=== PATIENT | male | born 1945 | race Caucasian/White ===

== ENCOUNTER 2021-10-27 12:19 | Emergency (ER) | payer OTHER ==
[~2021-10-27 12:19] MED LIST: CIPRO500 MG PO
[2021-10-27 12:50] LABS: HEMOGLOBIN 12.9 gm/dl (14.0-17.5); RED BLOOD COUNT 4.32 M/UL (4.20-5.50); WHITE BLOOD COUNT 6.8 K/UL (4.5-11.0)
[2021-10-27 13:14] LABS: BUN/CREATININE RATIO 21 (0-10)
[2021-10-27] MEDS ORDERED: COLACE100 MG PO (18:54)
[2021-10-27] MEDS ORDERED: FLORASTOR250 MG PO (18:54)
[2021-10-27] MEDS ORDERED: BENTYL 20MG TAB20 MG PO (18:54)
[2021-10-27] MEDS ORDERED: ULTRAM50 MG PO (18:54)
== END 2021-10-27 19:05 | disposition home or self-care (01) ==
LOC: ER1 12:19
PROVIDERS: Physician Assistant
DX: K59.00 Constipation, unspecified (principal); R45.851 Suicidal ideations; F17.210 Nicotine dependence, cigarettes, uncomplicated
CPT/HCPCS: 80053; 81001; 85025; 99284; Q9967

== ENCOUNTER 2022-01-13 20:32 | Emergency (ER) | payer MEDICARE ==
[~2022-01-13 20:32] MED LIST changes: +BENTYL 20MG TAB20 MG PO; +COLACE100 MG PO; +FLORASTOR250 MG PO; +ULTRAM50 MG PO
[2022-01-13 21:39] LABS: HEMOGLOBIN 13.8 gm/dl (14.0-17.5); RED BLOOD COUNT 4.54 M/UL (4.20-5.50); WHITE BLOOD COUNT 6.6 K/UL (4.5-11.0)
[2022-01-13 22:02] LABS: BUN/CREATININE RATIO 14 (0-10)
== END 2022-01-13 23:12 | disposition home or self-care (01) ==
LOC: ER1 20:32
PROVIDERS: Physician Assistant
DX: K59.00 Constipation, unspecified (principal); J44.9 Chronic obstructive pulmonary disease, unspecified; F17.210 Nicotine dependence, cigarettes, uncomplicated
CPT/HCPCS: 80053; 83690; 85025; 99284; Q9967

== ENCOUNTER 2022-01-28 08:24 | Emergency (ER) | payer MEDICARE ==
[2022-01-28 09:24] LABS: HEMOGLOBIN 14.6 gm/dl (14.0-17.5); RED BLOOD COUNT 4.95 M/UL (4.20-5.50)
[2022-01-28 09:54] LABS: BUN/CREATININE RATIO 16 (0-10)
== END 2022-01-28 12:00 | disposition home or self-care (01) ==
LOC: ER1 08:24
PROVIDERS: Physician Assistant
DX: K59.00 Constipation, unspecified (principal); F17.210 Nicotine dependence, cigarettes, uncomplicated
CPT/HCPCS: 71045; 80053; 81001; 83605; 83690; 84439; 84443; 85025; 99284; Q9967

== ENCOUNTER 2022-02-26 13:42 | Emergency (ER) | payer MEDICARE ==
[2022-02-26 14:50] LABS: HEMOGLOBIN 14.3 gm/dl (14.0-17.5); RED BLOOD COUNT 4.67 M/UL (4.20-5.50); WHITE BLOOD COUNT 7.7 K/UL (4.5-11.0)
[2022-02-26 15:11] LABS: BUN/CREATININE RATIO 14 (0-10)
== END 2022-02-26 20:40 | disposition home or self-care (01) ==
LOC: ER1 13:42
PROVIDERS: Emergency Medicine
DX: K59.00 Constipation, unspecified (principal); E78.5 Hyperlipidemia, unspecified; I10 Essential (primary) hypertension
CPT/HCPCS: 80053; 81001; 83690; 85025; 99284; Q9967

== ENCOUNTER 2022-04-05 11:44 | Emergency (ER) | payer MEDICARE ==
[2022-04-05 13:06] LABS: HEMOGLOBIN 13.5 gm/dl (14.0-17.5); RED BLOOD COUNT 4.38 M/UL (4.20-5.50); WHITE BLOOD COUNT 5.8 K/UL (4.5-11.0)
[2022-04-05 13:23] LABS: BUN/CREATININE RATIO 23 (0-10)
[2022-04-05] MEDS ORDERED: PROTONIX 40 MG40 M1 PO (16:23)
[2022-04-05] MEDS ORDERED: COLACE 100MG C100 MG PO (16:28)
== END 2022-04-05 17:00 | disposition home or self-care (01) ==
LOC: ER1 11:44
PROVIDERS: Physician Assistant
DX: R10.11 Right upper quadrant pain (principal); R10.811 Right upper quadrant abdominal tenderness; R94.5 Abnormal results of liver function studies; J44.9 Chronic obstructive pulmonary disease, unspecified; F17.200 Nicotine dependence, unspecified, uncomplicated; Z79.899 Other long term (current) drug therapy
CPT/HCPCS: 74018; 76705; 80053; 81001; 83605; 83690; 85025; 96374; 99284; C9113